=== PATIENT | female | born 1995 | race Caucasian/White ===

== ENCOUNTER 2018-01-15 19:50 | Emergency (ER) | payer SELFPAY ==
--- NOTE | 2018-01-15 21:09 | ER Document Report ---
ED General - General Chief Complaint: Vaginal Pain Stated Complaint: VAGINAL AND HIP PAIN Time Seen by Provider: 01/15/18 21:08 Mode of Arrival: Ambulatory Information source: Patient Notes: Patient is a otherwise healthy 22-year-old female presenting with chief complaint of abdominal pain and vaginal pain. Patient reports that she has had pain in her right lower quadrant that began yesterday patient also reports that she has an IUD that she feels may be misplaced as she tried a new sexual position and then had vaginal pain. Patient denies any nausea, vomiting, diarrhea, fever. Patient also denies any urinary symptoms or any vaginal discharge. TRAVEL OUTSIDE OF THE [place] IN LAST 30 DAYS: No - Related Data Allergies/Adverse Reactions: No Known Allergies Allergy (Unverified 01/15/18 19:52) Past Medical History - General Information source: Patient - Social History Smoking Status: Former Smoker Chew tobacco use (# tins/day): No Frequency of alcohol use: None Drug Abuse: None Lives with: Family Family History: Reviewed & Not Pertinent Patient has suicidal ideation: No Patient has homicidal ideation: No Renal/ Medical History: Reports: Hx Kidney Stones. Denies: Hx Peritoneal Dialysis Past Surgical History: Reports: Hx Section - 2012 - Immunizations Hx Diphtheria, Pertussis, Tetanus Vaccination: Yes Review of Systems - Review of Systems Constitutional: No symptoms reported EENT: No symptoms reported Cardiovascular: No symptoms reported Respiratory: No symptoms reported Gastrointestinal: See HPI Genitourinary: No symptoms reported Female Genitourinary: No symptoms reported Musculoskeletal: No symptoms reported Skin: No symptoms reported Hematologic/Lymphatic: No symptoms reported Neurological/Psychological: No symptoms reported Physical Exam - Vital signs Vitals: Temp Pulse Resp BP Pulse Ox 98.9 F 67 15 114/72 100 01/15/18 20:01 01/15/18 20:01 01/15/18 20:01 01/15/18 20:01 01/15/18 20:01 - Notes Notes: PHYSICAL EXAMINATION: GENERAL: Well-appearing, well-nourished and in no acute distress. HEAD: Atraumatic, normocephalic. EYES: Pupils equal round and reactive to light, extraocular movements intact, conjunctiva are normal. ENT: Nares patent, oropharynx clear without exudates. Moist mucous membranes. NECK: Normal range of motion, supple without lymphadenopathy LUNGS: Breath sounds clear to auscultation bilaterally and equal. No wheezes rales or rhonchi. HEART: Regular rate and rhythm without murmurs ABDOMEN: Soft, nondistended abdomen. Tenderness to palpation from mid abdomen to right lower quadrant. No guarding, no rebound. No masses appreciated. Female : Mild CVA tenderness Musculoskeletal: Normal range of motion, no pitting or edema. No cyanosis. NEUROLOGICAL: Cranial nerves grossly intact. Normal speech, normal gait. Normal sensory, motor exams PSYCH: Normal mood, normal affect. SKIN: Warm, Dry, normal turgor, no rashes or lesions noted. Course - Re-evaluation Re-evalutation: Otherwise healthy 22-year-old female presenting with chief complaint of right lower quadrant and vaginal pain. Patient concerned that her IUD may be misplaced. Patient has very tender to palpation to entire right side of abdomen. Mild CVA tenderness noted. Patient does report a history of renal stones. Will order CBC, comprehensive metabolic panel and urinalysis. Also do a transvaginal ultrasound to rule out any ovarian torsion versus tubo-ovarian abscess. CBC, comprehensive metabolic panel and urinalysis are all unremarkable. Vaginal ultrasound is also normal. Normal Doppler flow to bilateral ovaries. On reevaluation, patient with exquisite tenderness to the right lower quadrant, patient reports that she also has some right flank pain. Given her history of renal stones will order a CT renal stone evaluation. CAT scan with no acute abnormalities. Appendix appears normal. No renal calculi. Patient is requesting for me to take her Mirena out patient will be sent to the health department for this. Patient will be discharged home in stable condition, patient will be provided with prescription for Toradol. Patient understands ED return precautions to include worsening abdominal pain, fever, vomiting or any other symptoms that is concerning to her. Did discuss appendicitis return precautions with patient. Patient verbalizes understanding. - Vital Signs Vital signs: Temp Pulse Resp BP Pulse Ox 98.6 F 63 18 105/60 99 01/16/18 02:15 01/16/18 02:15 01/16/18 02:15 01/16/18 02:15 01/16/18 02:15 - Laboratory Result Diagrams: 01/15/18 21:59 01/15/18 21:59 Laboratory results interpreted by me: 01/15/18 22:08 Ur Leukocyte Esterase SMALL H Discharge - Discharge Clinical Impression: IUD (intrauterine device) in place Abdominal pain Qualifiers: Abdominal location: right lower quadrant Qualified Code(s): R10.31 - Right lower quadrant pain Condition: Stable Disposition: HOME, SELF-CARE Additional Instructions: ABDOMINAL PAIN: There are many causes of abdominal pain. Pain can mean a serious problem requiring surgery (such as appendicitis). It can also be an innocent problem that goes away on its own (such as a viral infection). Often, time must pass to determine the cause of pain. The physician does not feel that hospitalization is necessary, at present. Things may change within the next 24 hours. Call the doctor or come back for re- examination if any problems occur, such as: (1) Pain that becomes more severe, steady, or becomes concentrated in one specific area. Also, pain that is more severe with movement or coughing. (2) Vomiting that persists or becomes more frequent. (3) Blood in the vomitus, urine, or bowel movements. Blood in the stool may have a tarry or black appearance. (4) Shaking chills or fever greater than 100 degrees F. (5) The abdomen becomes more distended or swollen. (6) Bowel movements cease. (7) Failure to improve as expected. NORMAL WORKUP: At this time, your examination and workup show no significant abnormality. All laboratory, and imaging (x-ray, CT scans, ultrasound) studies that were ordered show no significant abnormality. Although your examination and all studies that were ordered showed no significant abnormal finding, there are no examinations and no studies that are 100% accurate. There is always the possibility that some abnormality could exist and not be detected with physical examination or within the limits and capabilities of laboratory and other studies. You should return or follow up as you were instructed on your visit today for further evaluation if your symptoms do not resolve. TORADOL INJECTION: You have been given an injection of ketorolac tromethamine (Toradol). This is an excellent, safe drug for pain control. It also has potent antiinflammatory action. You should have significant pain relief within about one hour. Toradol is not addicting and is non-sedating. It does not interfere with driving or work. Call or return if you develop itching, hives, shortness of breath, or rash. FOLLOW-UP CARE: You should return for re-evaluation in 12 hours or sooner if your pain worsens. This follow-up visit is important. If you are unable to return, or feel that the return visit is unnecessary, please call us. You can also follow-up with the health department for your IUD removal. Prescriptions: Ketorolac Tromethamine [Toradol 10 mg Tablet] 10 mg PO Q8HP PRN #10 tablet PRN Reason: For Pain
[2018-01-15] MEDS ORDERED: KETOROLAC TROMETHAMINE INJ/PF 30 MG/1 ML SDV IV ONE (21:38)
[2018-01-15 22:10] LABS: ABSOLUTE EOSINOPHILS # (AUTO) 0.1 10^3/uL (0.0-0.6); ABSOLUTE LYMPHOCYTES (AUTO) 2.5 10^3/uL (0.5-4.7); ABSOLUTE MONOCYTES (AUTO) 0.7 10^3/uL (0.1-1.4); ABSOLUTE NEUT (AUTO) 4.9 10^3/uL (1.7-8.2); BASOPHILS % (AUTO) 0.4 % (0-2); EOSINOPHILS % (AUTO) 1.1 % (0-6); HEMATOCRIT 39.1 % (36.0-47.0); HEMOGLOBIN 13.8 g/dL (12.0-15.5); LYMPHOCYTES % (AUTO) 30.7 % (13-45); MEAN CORPUSCULAR HEMOGLOBIN 30.3 pg (27.0-33.4); MEAN CORPUSCULAR HGB CONC 35.2 g/dL (32.0-36.0); MEAN CORPUSCULAR VOLUME 86 fl (80-97); MONOCYTES % (AUTO) 8.9 % (3-13); PLATELET COUNT 255 10^3/uL (150-450); RED BLOOD COUNT 4.55 10^6/uL (3.72-5.28); RED CELL DISTRIBUTION WIDTH 12.9 % (11.5-14.0); SEGMENTED NEUTROPHILS % (AUTO) 58.9 % (42-78); TOTAL CELLS COUNTED % (AUTO) 100 %; WHITE BLOOD COUNT 8.3 10^3/uL (4.0-10.5)
[2018-01-15 22:31] LABS: APPEARANCE,URINE CLEAR; BILIRUBIN,URINE NEGATIVE (NEGATIVE); COLOR,URINE YELLOW; GLUCOSE, URINE NEGATIVE (NEGATIVE); KETONES,URINE NEGATIVE (NEGATIVE); LEUKOCYTE ESTERASE,URINE SMALL (NEGATIVE); NITRITE,URINE NEGATIVE (NEGATIVE); PROTEIN,URINE NEGATIVE (NEGATIVE); URINE SPECIFIC GRAVITY 1.017; UROBILINOGEN,URINE NEGATIVE mg/dL (<2.0)
[2018-01-15 22:32] LABS: ALANINE AMINOTRANSFERASE 52 U/L (9-52); ALBUMIN 4.4 g/dL (3.5-5.0); ALKALINE PHOSPHATASE 72 U/L (38-126); ANION GAP 13 (5-19); ASPARTATE AMINO TRANSFERASE 33 U/L (14-36); BILIRUBIN,DIRECT 0.2 mg/dL (0.0-0.4); BILIRUBIN,TOTAL 0.6 mg/dL (0.2-1.3); BLOOD UREA NITROGEN 14 mg/dL (7-20); CALCIUM 9.6 mg/dL (8.4-10.2); CARBON DIOXIDE 25 mmol/L (22-30); CHLORIDE 104 mmol/L (98-107); GLUCOSE 78 mg/dL (75-110); SODIUM 141.9 mmol/L (137-145); TOTAL PROTEIN 7.7 g/dL (6.3-8.2)
--- NOTE | 2018-01-15 23:35 | RADIOLOGY REPORT (SQ) ---
EXAM DESCRIPTION: US PELVIS COMPLETED DATE/TME: 01/15/2018 21:39 CLINICAL HISTORY: 22 years, Female, pelvic pain LMP 01/01/2018 COMPARISON: None. TECHNIQUE: Complete pelvic ultrasound with transvaginal imaging. FINDINGS: The uterus measures 8.9 x 5.4 x 4.2 cm. Endometrial thickness of 0.5 cm. Cervical length of 2.2 cm. IUD identified in the endometrial canal appearing to be in appropriate position. The right ovary measures 3.3 x 1.9 x 2.5 cm. The left ovary measures 3.3 x 3.2 x 2.0 cm. Limited color spectral Doppler imaging demonstrates flow within the ovaries bilaterally. Tiny amount of free pelvic fluid. No large adnexal masses strings possibly visualized in the lower uterine segment.. IMPRESSION: 1. IUD within the endometrium. Strings appear to be in the lower uterine segment. 2. Small amount of free pelvic fluid is likely physiologic. 2011 [employer]- All Rights Reserved
--- NOTE | 2018-01-16 01:27 | RADIOLOGY REPORT (SQ) ---
EXAM DESCRIPTION: CT ABDOMEN WITHOUT IV CONTRAST COMPLETED DATE/TME: 01/16/2018 00:43 CLINICAL HISTORY: R flank pain and RLQ pain. HCG NEG COMPARISON: None Available. TECHNIQUE: CT of the abdomen and pelvis without IV contrast. Evaluation of the solid organs and vasculature is suboptimal due to lack of IV contrast. DLP: 257.56 mGy-cm FINDINGS: Lung Bases: The visualized lung bases are clear. Bones: No destructive bone lesions identified. Abdomen: Liver: The liver has normal size and density. Gallbladder: No calcified gallstones. Spleen, Pancreas, and Adrenal Glands: The spleen, pancreas, and adrenal glands are unremarkable. Kidneys: The kidneys have normal size and contour without evidence of hydronephrosis. No obstructing ureteral calculi. Punctate nonobstructing inferior pole left renal calculus. Vasculature: The aorta and IVC have normal caliber and position. Stomach: The stomach and duodenum have normal course. Other: No free intraperitoneal air. No free fluid or lymphadenopathy. Pelvis: Bladder: Urinary bladder is unremarkable. Bowel: No dilated loops of large or small bowel. Appendix: Normal appendix. Pelvis: IUD in place IMPRESSION: 1. No acute inflammatory or obstructive process identified. 2. Nonobstructing inferior pole left renal calculus. 3. IUD in place. This exam was performed according to our departmental dose-optimization program, which includes automated exposure control, adjustment of the mA and/or kV according to patient size and/or use of iterative reconstruction technique.
[2018-01-16 03:12] VITALS: BP 105/60
== END 2018-01-16 02:19 | disposition home or self-care (01) ==
LOC: ER 19:50
DX: R10.31 Right lower quadrant pain (principal); R10.2 Pelvic and perineal pain; Z97.5 Presence of (intrauterine) contraceptive device; Z87.891 Personal history of nicotine dependence; Z87.442 Personal history of urinary calculi
CPT/HCPCS: 99284; 96374; 36415; 85025; 81025; 80053; 81001; 76830; 93976; 76380; J1885

== ENCOUNTER 2018-03-14 10:45 | Day surgery (SDC) | payer MEDICAID ==
[2018-03-08 11:02] LABS: APPEARANCE,URINE CLEAR; BILIRUBIN,URINE NEGATIVE (NEGATIVE); COLOR,URINE YELLOW; GLUCOSE, URINE NEGATIVE (NEGATIVE); KETONES,URINE NEGATIVE (NEGATIVE); LEUKOCYTE ESTERASE,URINE NEGATIVE (NEGATIVE); NITRITE,URINE NEGATIVE (NEGATIVE); PROTEIN,URINE NEGATIVE (NEGATIVE); URINE SPECIFIC GRAVITY 1.021; UROBILINOGEN,URINE NEGATIVE mg/dL (<2.0)
[2018-03-08 11:20] LABS: HEMATOCRIT 39.6 % (36.0-47.0); HEMOGLOBIN 13.6 g/dL (12.0-15.5); MEAN CORPUSCULAR HEMOGLOBIN 29.7 pg (27.0-33.4); MEAN CORPUSCULAR HGB CONC 34.2 g/dL (32.0-36.0); MEAN CORPUSCULAR VOLUME 87 fl (80-97); PLATELET COUNT 278 10^3/uL (150-450); RED BLOOD COUNT 4.57 10^6/uL (3.72-5.28); RED CELL DISTRIBUTION WIDTH 12.6 % (11.5-14.0); WHITE BLOOD COUNT 7.6 10^3/uL (4.0-10.5)
[~2018-03-14 10:45] MED LIST: LACTATED RINGERS 1000 ML IV PRN; LIDOCAINE 0.5% INJ-PF (5 MG/ML) 50 ML SDV SUBCUT PRN
[2018-03-14] MEDS ORDERED: FENTANYL CITRATE INJ/PF 100 MCG/2 ML AMPUL ONE (12:38)
[2018-03-14] MEDS ORDERED: PROPOFOL INJ 200 MG/20 ML VIAL IV ONE (12:39)
[2018-03-14] MEDS ORDERED: ONDANSETRON HCL INJ/PF 4 MG/2 ML SDV ONE (12:39)
[2018-03-14] MEDS ORDERED: MIDAZOLAM 2 MG/2 ML INJ ONE (12:39)
[2018-03-14] MEDS ORDERED: PROMETHAZINE HCL INJ 25 MG/1 ML VIAL IV PRN ×2 (13:20)
[2018-03-14] MEDS ORDERED: OXYCODONE-ACETAMINOPHEN 5-325 MG TABLET PO PRN ×4 (13:20→14:17)
[2018-03-14] MEDS ORDERED: MEPERIDINE HCL/PF INJ 25 MG/1 ML DISP.SYRIN IV PRN (13:20)
[2018-03-14] MEDS ORDERED: FENTANYL CITRATE INJ/PF 100 MCG/2 ML AMPUL IV PRN ×3 (13:20)
[2018-03-14] MEDS ORDERED: DIPHENHYDRAMINE HCL 50 MG/ML VIAL IV PRN (13:20)
[2018-03-14] MEDS ORDERED: OXYCODONE-ACETAMINOPHEN 5-325 MG TABLET ONE (14:05)
[2018-03-14] MEDS ORDERED: KETOROLAC TROMETHAMINE INJ/PF 30 MG/1 ML SDV IM PRN (14:16)
[2018-03-14] MEDS ORDERED: IBUPROFEN 800 MG TABLET PO PRN (14:16)
--- NOTE | 2018-03-14 16:15 | OPERATIVE REPORT E ---
Operative Report NAME: ASA MONCADA : 1995 AGE: 22Y DATE OF SURGERY: 03/14/2018 ROOM: PREOPERATIVE DIAGNOSIS: Retained IUD. POSTOPERATIVE DIAGNOSIS: Retained IUD. SURGEON: CATIE HUNT M.D. ANESTHESIA: Trevor Mercer M.D. with LMAC. FINDINGS: A normal endometrium and a retained IUD with the IUD strings curled up around the head of the device. COMPLICATIONS: None. ESTIMATED BLOOD LOSS: 5 mL. SPECIMENS REMOVED: None. PROCEDURE: Hysteroscopic IUD removal. PROCEDURE IN DETAIL: The patient was taken to the operating room, prepared and draped in the normal sterile fashion, in dorsal lithotomy position. In and out cath was performed of approximately 150 mL of clear urine. The sterile speculum was then placed in the vagina and the cervix was grasped with a single tooth tenaculum. The cervix was then sounded to approximately 8 cm. The cervix was then dilated to accommodate the hysteroscope which was introduced without difficulty and the device was noted within the endometrial cavity. The strings were noted to be wrapped up around the head of the device. The grasper was introduced through the hysteroscope and the strings were grasped with the hysteroscopic grasper and once this was performed we carefully removed the hysteroscope and the IUD together without difficulty. The patient tolerated the procedure well. Sponge, lap, and needle counts were correct x2. The speculum was removed for the vagina without difficulty as well as the other instruments, and the patient went to recovery in stable condition. DICTATING PHYSICIAN: CATIE HUNT M.D. [id number] PHY#: [id number] ID: [id number] JOB#: [id number] ACCT: [id number] cc:CATIE HUNT M.D. >
[2018-03-14 16:58] VITALS: BP 97/62
== END 2018-03-14 16:15 | disposition home or self-care (01) ==
LOC: OROUT 10:45
PROVIDERS: ATTEND Obstetrics & Gynecology
DX: T83.39XA Other mechanical complication of intrauterine contraceptive device, initial encounter (principal); Y83.8 Other surgical procedures as the cause of abnormal reaction of the patient, or of later complication, without mention of misadventure at the time of the procedure; Z87.891 Personal history of nicotine dependence
CPT/HCPCS: 36415; 85027; 81025; 81001; 58579; J2250; J3010; J2405; J2704; 940